=== PATIENT | female | born 1940 | race Caucasian/White ===

== ENCOUNTER 2017-11-21 03:48 | Emergency (ER) | payer MEDICARE ==
[~2017-11-21] VITALS: Ht 170.2 cm; Wt 73.4 kg
[2017-11-21] MEDS ORDERED: BUSPAR5 MG PO (04:10)
[2017-11-21] MEDS ORDERED: METOPROL TAR25 MG PO (04:10)
[2017-11-21 04:56] LABS: HEMATOCRIT 42.4 % (37.0-47.0); IMMATURE GRANULOCYTES 0.2 % (0.0-5.0); MEAN CELL VOLUME 88.9 fL CALC (80.0-100.0); MEAN CORPUSCULAR HGB 29.4 pG CALC (26.0-32.0); NEUT# 3.07 thou/uL (2.00-7.15); RED BLOOD COUNT 4.77 mill/uL (4.20-5.60)
[2017-11-21 05:08] LABS: ALBUMIN 4.6 g/dL (3.2-5.0); ALKALINE PHOSPHATASE 93 u/l (38-126); ANION GAP 16 (6-22 (CALC)); BILIRUBIN, TOTAL 0.8 mg/dL (0.0-1.4); BUN 21 mg/dL (8-23); BUN/CREATININE RATIO 21 (12-20 (CALC)); CARBON DIOXIDE 27 mmol/l (22-30); CHLORIDE 104 mmol/l (95-108); GFR 54 ML/MIN (>=60 (CALC)); GFR FOR AFR.AMER. > 60 ML/MIN (>=60 (CALC)); POTASSIUM 3.9 mmol/l (3.5-5.1); SGOT/AST 31 u/l (9-36); SGPT/ALT 28 u/l (11-66); SODIUM 143 mmol/l (137-146); TOTAL PROTEIN 8.6 g/dL (6.3-8.2)
[2017-11-21 05:20] LABS: MYOGLOBIN 100 ng/mL (0 - 62)
[2017-11-21] MEDS ORDERED: ATIVAN0.5 MG PO (05:44)
[2017-11-21 05:47] VITALS: BP 136/75
== END 2017-11-21 06:03 | disposition home or self-care (01) ==
LOC: ED 03:48
PROVIDERS: Emergency Medicine
DX: F41.9 Anxiety disorder, unspecified (principal); F32.9 Major depressive disorder, single episode, unspecified; I10 Essential (primary) hypertension; J44.9 Chronic obstructive pulmonary disease, unspecified; Z63.4 Disappearance and death of family member
CPT/HCPCS: J2060